=== PATIENT | male | born 1965 | race Caucasian/White ===

== ENCOUNTER 2019-05-26 09:07 | Day surgery (SDC) | payer OTHER ==
[2019-05-26] MEDS ORDERED: FERRIC CARBOXYMALTOSE 750 MG in SODIUM CHLORIDE 250 ML IVPB ONE (11:00)
[2019-05-26 11:14] VITALS: BP 127/66; PULSE 73; TEMP 99.8
== END 2019-05-26 11:16 | disposition home or self-care (01) ==
LOC: JINFUSION 09:07
PROVIDERS: ATTEND Internal Medicine Nephrology
PROC: 3E033GC Introduction of Other Therapeutic Substance into Peripheral Vein, Percutaneous Approach (ICD-10-PCS; principal; 2019-05-26)
DX: D50.9 Iron deficiency anemia, unspecified (principal)
CPT/HCPCS: 96365; J1439

== ENCOUNTER 2019-06-02 07:55 | Day surgery (SDC) | payer OTHER ==
[2019-06-02] MEDS ORDERED: FERRIC CARBOXYMALTOSE 750 MG in SODIUM CHLORIDE 250 ML IVPB ONE (08:45)
[2019-06-02 09:50] VITALS: BP 124/71; PULSE 62; TEMP 98
== END 2019-06-02 09:35 | disposition home or self-care (01) ==
LOC: JINFUSION 07:55
PROVIDERS: ATTEND Internal Medicine Nephrology
PROC: 3E033GC Introduction of Other Therapeutic Substance into Peripheral Vein, Percutaneous Approach (ICD-10-PCS; principal; 2019-06-02)
DX: D50.9 Iron deficiency anemia, unspecified (principal)
CPT/HCPCS: 96365; J1439

== ENCOUNTER 2020-08-10 11:15 | Inpatient (IN) | payer OTHER ==
[2020-08-10 11:24] VITALS: BMI 28.1
[2020-08-10 15:31] LABS: BASO % 0.9 % (0-2.0); EOS % 2.8 % (0-4.5); HEMATOCRIT 34.5 % (35.4-49); LYMPH % 23.4 % (8-40); MCH 32.7 pg (25.7-33.7); MCHC 31.8 g/dl (32.0-35.9); MEAN CELL VOLUME 102.8 fl (80-96); MEAN PLT VOLUME 9.8 fl (7.5-11.1); MONO % 5.8 % (3.8-10.2); NEUT % 67.1 % (42.8-82.8); PLATELET COUNT 239 K/MM3 (134-434); RBC 3.36 M/mm3 (4.00-5.60); RDW 15.3 % (11.9-15.9); WHITE BLOOD COUNT 5.1 K/mm3 (4.0-10.0)
[2020-08-10 15:41] LABS: CHLORIDE 101 mmol/L (98-107); INR 1.03 (0.83-1.09); POTASSIUM 4.4 mmol/L (3.5-5.1); PROTHROMBIN TIME (PATIENT) 12.5 SEC (9.7-13.0); SODIUM 139 mmol/L (136-145)
[2020-08-10 15:42] VITALS: BP 135/89; PULSE 87; TEMP 98.7
[2020-08-10 15:44] LABS: ACTIVATED PTT 29.6 SECONDS (25.2-36.5); BLOOD UREA NITROGEN 72.9 mg/dL (7-18); GLUCOSE,RANDOM 101 mg/dL (74-106)
[2020-08-10 15:45] LABS: ANION GAP 8 MMOL/L (8-16); CO2 29 mmol/L (21-32)
[2020-08-10 15:48] LABS: CREATININE 5.4 mg/dL (0.55-1.3); SGOT/AST 11 U/L (15-37); SGPT/ALT 12 U/L (13-61)
[2020-08-10 15:49] LABS: BILIRUBIN,TOTAL 0.4 mg/dL (0.2-1); TOT PROT 6.6 g/dl (6.4-8.2)
[2020-08-10 15:51] LABS: ALK PHOS 107 U/L (45-117)
[2020-08-10 15:58] LABS: CALCIUM 6.5 mg/dL (8.5-10.1)
== END 2020-08-10 17:00 | disposition left against medical advice (07) | DRG 919 ==
LOC: JER 11:15 → JERBED 16:01
PROVIDERS: ADMIT Family Medicine; ATTEND Family Medicine
DX: T85.611A Breakdown (mechanical) of intraperitoneal dialysis catheter, initial encounter (principal); N18.6 End stage renal disease; I12.0 Hypertensive chronic kidney disease with stage 5 chronic kidney disease or end stage renal disease; E11.9 Type 2 diabetes mellitus without complications; M1A.9XX0 Chronic gout, unspecified, without tophus (tophi); Y83.9 Surgical procedure, unspecified as the cause of abnormal reaction of the patient, or of later complication, without mention of misadventure at the time of the procedure; E66.9 Obesity, unspecified; Z68.28 Body mass index [BMI] 28.0-28.9, adult
CPT/HCPCS: 36415; 80053; 85025; 85610; 85730; 86850; 86900; 86901; 99285-25; C9803; U0003; U0005

== ENCOUNTER 2020-08-14 13:04 | Day surgery (SDC) | payer OTHER ==
[2020-08-14 13:23] VITALS: BMI 25.3
[2020-08-14 17:41] LABS: BASO % 0.7 % (0-2.0); EOS % 3.4 % (0-4.5); HEMATOCRIT 32.3 % (35.4-49); HEMOGLOBIN 10.1 GM/dL (11.7-16.9); LYMPH % 19.6 % (8-40); MCH 32.2 pg (25.7-33.7); MCHC 31.3 g/dl (32.0-35.9); MEAN CELL VOLUME 102.8 fl (80-96); MEAN PLT VOLUME 9.7 fl (7.5-11.1); NEUT % 70.3 % (42.8-82.8); PLATELET COUNT 276 K/MM3 (134-434); RBC 3.14 M/mm3 (4.00-5.60); RDW 15.7 % (11.9-15.9); WHITE BLOOD COUNT 5.3 K/mm3 (4.0-10.0)
[2020-08-14 17:48] LABS: INR 1.17 (0.83-1.09); PROTHROMBIN TIME (PATIENT) 14.1 SEC (9.7-13.0)
[2020-08-14 17:50] LABS: ACTIVATED PTT 30.3 SECONDS (25.2-36.5)
[2020-08-14 18:18] LABS: CHLORIDE 104 mmol/L (98-107); POTASSIUM 4.9 mmol/L (3.5-5.1); SODIUM 141 mmol/L (136-145)
[2020-08-14 18:20] LABS: ALBUMIN 2.6 g/dl (3.4-5.0); ANION GAP 8 MMOL/L (8-16); CO2 29 mmol/L (21-32); GLUCOSE,RANDOM 119 mg/dL (74-106)
[2020-08-14 18:23] LABS: SGOT/AST 13 U/L (15-37); SGPT/ALT 10 U/L (13-61)
[2020-08-14 18:24] LABS: CREATININE 6.2 mg/dL (0.55-1.3)
[2020-08-14 18:25] LABS: BILIRUBIN,TOTAL 0.3 mg/dL (0.2-1); TOT PROT 5.8 g/dl (6.4-8.2)
[2020-08-14 18:26] LABS: ALK PHOS 94 U/L (45-117)
[2020-08-14 18:29] LABS: BLOOD UREA NITROGEN 97.9 mg/dL (7-18)
[2020-08-14 18:34] LABS: CALCIUM 6.2 mg/dL (8.5-10.1)
[2020-08-14] MEDS ORDERED: ACETAMINOPHEN 500 MG TABLET (FP) PO ONE (18:59)
[2020-08-14] MEDS ORDERED: ACETAMINOPHEN 325 MG TABLET (FP) PO ONE (19:31)
[2020-08-14] MEDS ORDERED: ACETAMINOPHEN 325 MG TABLET (FP) ONE (19:32)
[2020-08-14] MEDS ORDERED: oxyCODONE HCL 5 MG TABLET PO ONE (20:21)
[2020-08-14] MEDS ORDERED: oxyCODONE HCL 5 MG TABLET ONE (20:50)
[2020-08-14] MEDS ORDERED: CALCIUM GLUCONATE 10% - 1,000 MG/10 ML VIAL IVPB ONE (21:37)
[2020-08-14] MEDS ORDERED: CALCIUM GLUC IN NACL, ISO-OSM 1 GM/50 ML BAG IVPB ONE (21:44)
[2020-08-15] MEDS ORDERED: MELATONIN 5 MG TABLETS PO PRN ×2 (01:15→10:50)
[2020-08-15] MEDS ORDERED: HEPARIN NA (PORCINE) 5,000 UNITS/ML 1ML VIAL SQ SCH ×2 (06:00→14:00)
[2020-08-15] MEDS ORDERED: SEVELAMER CARBONATE 0.8 GM POWDER PACKET PO SCH ×2 (08:00→12:00)
[2020-08-15] MEDS ORDERED: TAMSULOSIN HCL 0.4 MG CAP PO SCH (08:30)
[2020-08-15 08:46] LABS: ALK PHOS 111 U/L (45-117); ANION GAP 8 MMOL/L (8-16); BILIRUBIN,TOTAL 0.4 mg/dL (0.2-1); BLOOD UREA NITROGEN 93.6 mg/dL (7-18); CHLORIDE 104 mmol/L (98-107); CO2 29 mmol/L (21-32); CREATININE 6.3 mg/dL (0.55-1.3); GLUCOSE,RANDOM 90 mg/dL (74-106); POTASSIUM 4.9 mmol/L (3.5-5.1); SGOT/AST 12 U/L (15-37); SGPT/ALT 11 U/L (13-61); SODIUM 141 mmol/L (136-145); TOT PROT 6.6 g/dl (6.4-8.2)
[2020-08-15 08:49] LABS: CALCIUM 6.3 mg/dL (8.5-10.1)
[2020-08-15] MEDS ORDERED: ONDANSETRON 4 MG/2 ML VIAL IVPUSH PRN ×2 (09:25→10:50)
[2020-08-15] MEDS ORDERED: PROMETHAZINE HCL 25 MG/1 ML VIAL IVPB PRN ×2 (09:25→10:50)
[2020-08-15] MEDS ORDERED: PROPOFOL 20 ML ONE (09:28)
[2020-08-15] MEDS ORDERED: MIDAZOLAM HCL 2 MG/2 ML SINGLE DOSE VIAL ONE ×2 (09:28→10:31)
[2020-08-15] MEDS ORDERED: ROCURONIUM BROMIDE 50 MG/5 ML SYRINGE ONE (09:28)
[2020-08-15] MEDS ORDERED: LIDOCAINE HCL/PF 2% SDV 5ML VIAL ONE (09:29)
[2020-08-15] MEDS ORDERED: SODIUM CHLORIDE 1,000 ML IV SCH ×2 (09:30→10:50)
[2020-08-15] MEDS ORDERED: ONDANSETRON 4 MG/2 ML VIAL ONE (09:54)
[2020-08-15] MEDS ORDERED: DEXAMETHASONE SOD PHOSPHATE 4 MG/1 ML VIAL ONE (09:54)
[2020-08-15] MEDS ORDERED: CALCITRIOL 0.25 MCG CAPSULE (FP) PO SCH (10:00)
[2020-08-15] MEDS ORDERED: SODIUM ZIRCONIUM CYCLOSILICATE (LOKELMA) 5 GM PACKET PO SCH (10:00)
[2020-08-15] MEDS ORDERED: FAMOTIDINE 10 MG TABLET PO SCH (10:00)
[2020-08-15] MEDS ORDERED: CALCIUM 500MG/VIT-D 200 UNITS COMBO TABLET (FP) PO SCH ×2 (10:00→22:00)
[2020-08-15] MEDS ORDERED: ATENOLOL 25 MG TABLET (FP) PO SCH (10:00)
[2020-08-15] MEDS ORDERED: FUROSEMIDE 40 MG TABLET (FP) PO SCH (10:00)
[2020-08-15] MEDS ORDERED: BUPIVACAINE HCL/PF 0.5% (5 MG/ML) 30 ML VIAL IJ ONE (10:00)
[2020-08-15] MEDS ORDERED: CYANOCOBALAMIN 1,000 MCG TABLET (FP) PO SCH (10:00)
[2020-08-15 10:04] LABS: BASO % 0.5 % (0-2.0); HEMATOCRIT 35.1 % (35.4-49); HEMOGLOBIN 11.1 GM/dL (11.7-16.9); LYMPH % 28.4 % (8-40); MCH 32.4 pg (25.7-33.7); MCHC 31.6 g/dl (32.0-35.9); MEAN CELL VOLUME 102.5 fl (80-96); MEAN PLT VOLUME 9.8 fl (7.5-11.1); MONO % 5.9 % (3.8-10.2); NEUT % 62.2 % (42.8-82.8); PLATELET COUNT 294 K/MM3 (134-434); RBC 3.43 M/mm3 (4.00-5.60); RDW 15.3 % (11.9-15.9); WHITE BLOOD COUNT 5.6 K/mm3 (4.0-10.0)
[2020-08-15] MEDS ORDERED: GLYCOPYRROLATE 0.2 MG/1 ML VIAL ONE (10:13)
[2020-08-15] MEDS ORDERED: NEOSTIGMINE METHYLSULFATE 0.5 MG/1 ML - 10 ML MDV ONE ×2 (10:13)
[2020-08-15] MEDS ORDERED: HEPARIN NA (PORCINE) 5,000 UNITS/ML 1ML VIAL SQ ONE (10:20)
[2020-08-15] MEDS ORDERED: KETOROLAC TROMETHAMINE 30 MG/1 ML VIAL ONE (10:27)
[2020-08-15] MEDS ORDERED: INSULIN SLIDING SCALE (NOVOLOG) 1 VIAL SQ SCH ×2 (11:00)
[2020-08-15 13:58] VITALS: BP 128/82; PULSE 72; TEMP 97.4
[2020-08-16] MEDS ORDERED: TAMSULOSIN HCL 0.4 MG CAP PO SCH (08:30)
[2020-08-16] MEDS ORDERED: SODIUM ZIRCONIUM CYCLOSILICATE (LOKELMA) 5 GM PACKET PO SCH (10:00)
[2020-08-16] MEDS ORDERED: CYANOCOBALAMIN 1,000 MCG TABLET (FP) PO SCH (10:00)
[2020-08-16] MEDS ORDERED: ATENOLOL 25 MG TABLET (FP) PO SCH (10:00)
[2020-08-16] MEDS ORDERED: FAMOTIDINE 10 MG TABLET PO SCH (10:00)
[2020-08-16] MEDS ORDERED: CALCITRIOL 0.25 MCG CAPSULE (FP) PO SCH (10:00)
[2020-08-16] MEDS ORDERED: FUROSEMIDE 40 MG TABLET (FP) PO SCH (10:00)
== END 2020-08-15 14:20 | disposition home or self-care (01) ==
LOC: JER 13:04 → JASUSAT 18:47 → JERBED 18:47 → UNDOADMIN 18:47 → JASUSAT 08-15 14:20
PROVIDERS: ATTEND Family Medicine
PROC: 0WWG43Z Revision of Infusion Device in Peritoneal Cavity, Percutaneous Endoscopic Approach (ICD-10-PCS; principal; 2020-08-14)
DX: T85.898A Other specified complication of other internal prosthetic devices, implants and grafts, initial encounter (principal); I12.0 Hypertensive chronic kidney disease with stage 5 chronic kidney disease or end stage renal disease; E11.22 Type 2 diabetes mellitus with diabetic chronic kidney disease; N18.6 End stage renal disease; Z99.2 Dependence on renal dialysis
CPT/HCPCS: 36415; 73560-TC-RT-FY; 80053; 85025; 85610; 85730; 86850; 86900; 86901; 93005; 93010; 94760; 99285-25; C9803; J1644; U0003; U0005